=== PATIENT | female | born 1960 | race Caucasian/White ===

== ENCOUNTER 2016-12-17 11:56 | Day surgery (SDC) | payer BC ==
[~2016-12-17] VITALS: Ht 172.7 cm; Wt 104.3 kg
[~2016-12-17 11:56] MED LIST: AMOXICILLIN500 MG PO; CYCLOBENZAPRINE10 MG PO; DIFLUCAN150 MG PO; ESTRACE0.5 MG PO; GLUCOPHAGE500 MG PO; LEVOXYL50 MCG PO; LOTEMAX5 ML OPTH; METOPROLOL SUC100 MG PO; NORVASC5 MG PO; ONDANSETRON HCL8 MG PO; PROAIR RESPICL90 MCG; VALSARTAN-HCTZ1 EAC3 PO; XIIDRA1 EACH OP; ZITHROMAX250 MG PO
--- NOTE | 2016-12-17 14:18 | NUR ---
[facility]17[facility]16 [facility]18 [facility] PT WAS INFORMED THIS IS DUE TO THE PROCEDURE AND TO CONTINUE TO TRY AND PASS THE AIR. SHE STATES SHE WILL CONTINUE TO PASS THE AIR.
--- NOTE | 2016-12-18 15:15 | OR ---
[facility] [address] [place], [place] [address] Signed DATE OF PROCEDURE: 12/17/16 PREOPERATIVE DIAGNOSES Colon screening. Episodes of dysphagia without associated reflux. POSTOPERATIVE DIAGNOSES Poor flap valve consistent with small hiatal hernia. Significant antral gastritis. Polyp at 40 cm (excised). Sigmoid diverticulosis. PROCEDURE Esophagogastroduodenoscopy with biopsy. Total colonoscopy to cecum with hot snare polypectomy x1. SURGEON: Lourdes Mcgrath MD. ANESTHESIA: Intravenous sedation Fentanyl 150 mcg and Versed 6 mg. 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 The patient has concerns about reflux and occasional dysphagia as well as family history of colon cancer. She is also noted to have a small mass cephalad to the umbilicus consistent with epigastric hernia. An ultrasound confirmed a 2 cm defect with properitoneal fat herniated through it. She is admitted at this time to undergo upper endoscopy on the basis of her reflux and dyspeptic symptoms as well as colonoscopy for screening based on her age. The risks of bleeding, infection, and perforation related to either procedure was reviewed in detail. She understands and wished to proceed. FINDINGS On upper endoscopy, she had no obvious esophagi tis but did have a poor flap valve and small hiatal hernia. More notable was significant antral gastritis. CLOtest was negative indicative of no evidence of H. pylori. The duodenal had inflammation as well. There was no bay ulceration. On colonoscopy, the prep was quite good. Complete colonoscopy was undertaken to the cecum. Numerous diverticula were seen in the sigmoid. There was a small sessile polyp of the left colon at approximately 40 cm, which was excised with hot snare polypectomy technique. Electronically Signed By: LOURDES MCGRATH MD 12/18/16 1515 PATIENT NAME: HERMILA BENNETT OPERATIVE REPORT DATE OF : 56 PHYSICIAN: LOURDES MCGRATH MD REPORT #: [id number] REPORT IS CONFIDENTIAL AND NOT TO BE RELEASED WITHOUT AUTHORIZATION [facility] [address] [place], [place] [address] Signed DESCRIPTION OF PROCEDURE The patient was brought to the endoscopy suite and placed in lateral decubitus position after undergoing topical Hurricaine spray hypopharyngeal anesthesia. She was given intravenous sedation to the point of slurred speech and nystagmus. An Olympus video upper endoscope was passed in the hypopharynx. A bite block was used. The hypopharyngeal tissues were normal. Scope was advanced to the esophagus without problem. Throughout its length, it looked charito sonably normal. There is no evidence of Benz's epithelium, stricture, neoplasm, or varices. The scope was advanced to the stomach which was insufflated with air. Quite notable was markedly antral inflammation and minimal erosive changes. No sign of ulcer, however. The pylorus was normal and nondeformed. The endoscope was passed through the pylorus into the duodenal. The duodenal had edematous changes, but no ulceration. Biopsies were taken of the duodenum. Scope was withdrawn and a biopsy was then taken of the antrum for both [place] and pathologic testing. Retroflex view was undertaken showing a poor flap valve consistent with small hiatal hernia and a generally dysfunctional flap valve. The scope was straightened and withdrawn to the distal esophagus where biopsies were obtained and an additional biopsy was obtained in the mid esophagus. Careful withdrawal of scope showed no other abnormality. The table was rotated and additional sedation given. Digital rectal examination was normal showing normal sphincter tone. No evidence of recurrent cystocele and rectocele. An Olympus video colonoscope was passed in the rectum and manipulated throughout the colon. Sigmoid diverticulosis was noted. At approximately 40 cm a sessile polyp was noted. This was excised with h ot snare polypectomy technique completely. The scope was advanced further noting diverticula, but ultimately passed to the cecum showing no other abnormality. Irrigation was undertaken as needed. The scope was withdrawn from the cecum after identification of the ileocecal valve and appendiceal orifice. There was no evidence of abnormality upon withdrawal of the scope. The area of polypectomy was affirmed to be at 40 cm from the anal verge. Further withdrawal of scope confirmed diverticular changes of the sigmoid. Retroflexed view of the rectum was normal. Scope was removed and the patient was taken recovery room in good condition. CONCLUDING DIAGNOSES Clinical reflux symptoms with quite obvious antral gastritis. We will recommend Prilosec 20 mg daily. She may opt for Carafate 1 g p.o. q.i.d. on empty stomach. We will review this with her. Diverticular changes of the sigmoid and polyp. We would recommend high-fiber diet or a fiber supplement and consideration of repeat colonoscopy in 3 years. She will return to see us in approximately for 6 weeks and a plan for hernia repair will be anticipated as well. Electronically Signed By: LOURDES MCGRATH MD 12/18/16 3115 PATIENT NAME: HERMILA BENNETT OPERATIVE REPORT DATE OF : 56 PHYSICIAN: LOURDES MCGRATH MD REPORT #: [id number] REPORT IS CONFIDENTIAL AND NOT TO BE RELEASED WITHOUT AUTHORIZATION [facility] [address] [place] [address] [place], [place] [address] Signed MD ANGELIA Jama/Silvestre /[id number] cc: Kodak Baker PA-C Electronically Signed By: LOURDES MCGRATH MD 12/18/16 1515 PATIENT NAME: HERMILA BENNETT OPERATIVE REPORT DATE OF : 56 PHYSICIAN: LOURDES MCGRATH MD REPORT #: [id number] REPORT IS CONFIDENTIAL AND NOT TO BE RELEASED WITHOUT AUTHORIZATION
== END 2016-12-17 14:58 | disposition home or self-care (01) ==
LOC: DS 11:56 → OPS 11:56 → DS 13:00 → OPS 14:58
PROVIDERS: Surgery
PROC: 0DB28ZX Excision of Middle Esophagus, Via Natural or Artificial Opening Endoscopic, Diagnostic (ICD-10-PCS; 2016-12-17)
PROC: 0DB38ZX Excision of Lower Esophagus, Via Natural or Artificial Opening Endoscopic, Diagnostic (ICD-10-PCS; 2016-12-17)
PROC: 0DB68ZX Excision of Stomach, Via Natural or Artificial Opening Endoscopic, Diagnostic (ICD-10-PCS; 2016-12-17)
PROC: 0DBE8ZX Excision of Large Intestine, Via Natural or Artificial Opening Endoscopic, Diagnostic (ICD-10-PCS; principal; 2016-12-17 13:00)
PROC: 0DB98ZX Excision of Duodenum, Via Natural or Artificial Opening Endoscopic, Diagnostic (ICD-10-PCS; 2016-12-17 13:00)
DX: Z12.11 Encounter for screening for malignant neoplasm of colon (principal); D12.6 Benign neoplasm of colon, unspecified; K57.30 Diverticulosis of large intestine without perforation or abscess without bleeding; K29.50 Unspecified chronic gastritis without bleeding; K29.80 Duodenitis without bleeding; K44.9 Diaphragmatic hernia without obstruction or gangrene; Z80.0 Family history of malignant neoplasm of digestive organs; Z88.1 Allergy status to other antibiotic agents; Z88.8 Allergy status to other drugs, medicaments and biological substances; Z79.899 Other long term (current) drug therapy
CPT/HCPCS: 99152; 99153; J2250; J3010; J7120

== ENCOUNTER 2020-07-14 07:12 | Day surgery (SDC) | payer BC ==
[~2020-07-14] VITALS: Ht 172.7 cm; Wt 104.0 kg
[~2020-07-14 07:12] MED LIST changes: +ALDACTONE25 MG PO; +VALSARTAN-HCTZ1 EAC2 PO; -VALSARTAN-HCTZ1 EAC3 PO
[2020-07-14] MEDS ORDERED: VITAMIN D21250 MCG PO (07:52)
[2020-07-14] MEDS ORDERED: VITAMIN C1000 MG PO (07:53)
[2020-07-14] MEDS ORDERED: FISH OIL 1,001000 MG PO (07:53)
[2020-07-14] MEDS ORDERED: ZINC50 M1 PO (07:53)
--- NOTE | 2020-07-14 10:53 | NUR ---
07/14/20 1053 Lyn Liao 1035 PT TO PACU SLEEPING O2 VIA MASK FOGGING WITH RESPIRATIONS.
[2020-07-14] MEDS ORDERED: TYLENOL EXTRA500 MG PO (11:03)
[2020-07-14] MEDS ORDERED: MOTRIN IB200 MG PO (11:03)
[2020-07-14] MEDS ORDERED: PERCOCET 7.5-31 EACH PO (11:04)
--- NOTE | 2020-07-14 11:28 | NUR ---
LE 1115: PT RETURNS TO UNIT FROM PACU VIA STRETCHER. BEDSIDE REPORT RECEIVED AND CARE ASSUMED BY THIS AUTHOR. PT ALERT AND ORIENTED. VSS, DRESSING C/D/I. PT DENIES NAUSEA AND ICE WATER PROVIDED. PT WITHOUT NEEDS. CALL LIGHT WITHIN REACH
--- NOTE | 2020-07-14 12:38 | NUR ---
LE 1215: PT CONTS TO BE ALERT AND ORIENTED. VSS, DRESSING C/D/I. IV CONVERTED TO SL. PT DANGLES AT THE BEDSIDE, DENIES DIZZINESS AND SOB. AMBULATES TO BR WITH STANDBY ASSIST FROM THIS RN. SUCCESSFUL POST OP VOID. BACK TO ROOM AND PREPARES FOR D/C ONCE ARROVES. NO NEEDS VOICED. CALL LIGHT WITHIN REACH
--- NOTE | 2020-07-14 13:29 | NUR ---
PT ALERT, ORIENTED AND SUPPORTED BY HER LAN-HE WILL REMAIN HERE. PT IS PLEASANT, BOTH WAITING FOR RN TO COME AND GET THEM STATRTED TODAY. HAD. MOMENT WITH BOTH. GAVE ENCOURAGEMENT, WILL FOLLOW
--- NOTE | 2020-07-14 13:33 | NUR ---
PT CONTS TO WAIT FOR 'S ARRIVAL. VSS, RX ADMINISTERED FOR PAIN ORDERED. DRESSING C/D/I. LIA PO INTAKE WELL. SL D/C'D WITH CATH TIP INTACT AND PRESSURE APPLIED TO SITE. NO NEEDS. CALL LIGHT WITHIN REACH
--- NOTE | 2020-07-14 14:35 | NUR ---
LE 1405: PT'S ARRIVES ON THE UNIT. D/C INSTRUCTIONS PROVIDED AND DISCUSSED. PT VOICES UNDERSTANDING. ENCD TO RETURN OR CALL WITH ANY CONCERNS. WHEELED OFF OF UNIT IN W/C. TRANSFERS INTO VEHICLE INDPENDENTLY. RESP EVEN AND UNLABORED. NO PHYSICAL S/S OF DISTRESS AT THIS TIME
--- NOTE | 2020-07-14 16:46 | EKG ---
[facility] [place] [facility] [address] [facility] [place] [address] Signed Normal sinus rhythm Normal ECG No previous ECGs available Confirmed by BRUNO SALMERON MD ([id number]) on 07/14/2020 4:46:33 PM Electronically Signed By: BRUNO SALMERON MD 07/14/20 1646 PATIENT NAME: HERMILA BENNETT Electrocardiogram DATE OF : 56 PHYSICIAN: BRUNO SALMERON MD REPORT #: [id number] REPORT IS CONFIDENTIAL AND NOT TO BE RELEASED WITHOUT AUTHORIZATION
--- NOTE | 2020-07-16 13:48 | OR ---
[facility] [address] [place], [place] [address] Signed DATE OF OPERATION: 07/14/2020 SURGEON: Lourdes Mcgrath MD PREOPERATIVE DIAGNOSES: 1. Painful ventral epigastric hernia. 2. BMI 35. POSTOPERATIVE DIAGNOSES: 1. Painful ventral epigastric hernia. 2. BMI 35. 3. Herniated omentum. PROCEDURES: 1. Repair of epigastric ventral hernia. 2. Implantation of Prolene mesh, properitoneal space. 3. Partial omentectomy. ANESTHESIA: General endotracheal, Jacobo Victoria, BLOCK CUBER and local 10 mL of 0.25% Marcaine with epinephrine. 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 She is a patient of Jyothi Washburn PA-C in [place], [place]. The patient has had increasing pain in the epigastric supraumbilical area found clinically to have a hernia there. Plans were made for repair of the hernia in the past; however due to insurance issues, it never could be undertaken. I last saw her in January of 2017. Her hernia has worsened in size and in symptoms and she is now admitted to undergo repair of the hernia. It appears clinically nonreducible. She has no nausea or vomiting to suggest incarcerated hollow viscus. She is admitted at this time to undergo repair of the hernia. She understands the risks of bleeding, infection, recurrence and so on. FINDINGS: Indeed herniated omentum was noted within the hernia sac. This was well cephalad from the umbilicus itself. A transverse fascial defect was noted. Operative repair consisted of resection of portion of the omentum, closure of the hernia sac and implantation of Prolene mesh in the properitoneal space with reapproximation of the fascia transversely using Prolene suture and Prolene pledgets. There were no complications. She did not require a drain. Electronically Signed By: LOURDES MCGRATH MD 07/16/20 9388 PATIENT NAME: THEODORA SINCLAIR OPERATIVE REPORT DATE OF : 56 REPORT #: [id number] PHYSICIAN: LOURDES MCGRATH MD PCP: JYOTHI WASHBURN REPORT IS CONFIDENTIAL AND NOT TO BE RELEASED WITHOUT AUTHORIZATION [facility] [address] [place], [place] [address] Signed DESCRIPTION OF PROCEDURE: The patient was brought to the operating room, given a general endotracheal anesthetic. Preoperative antibiotic Ancef was given. Sequential compression device stockings were used. Heparin was subcutaneously administered. The abdomen was prepared with a chlorhexidine solution and draped sterilely. Approximately 5 fingerbreadths from the umbilicus, an incision was made directly over the soft tissue mass, which was nonreducible. Dissection was carried through the subcutaneous tissue and bluntly what appeared to be herniated fat. A fascial defect approximately 5 cm was noted with a transverse separation of the fibers typical of epigastric ventral hernia. The fascial edges were freed circumferentially. Ultimately, the hernia sac was opened and found to have omentum within it. Intraabdominal inspection showed no sign of ascites or carcinomatosis. The bulky portion of omentum was resected and replaced to the abdominal cavity and the hernia sac edges were reapproximated with running 2-0 Vicryl suture. The properitoneal space was developed bluntly throughout extending approximately 5-6 cm. A segment of Prolene mesh was cut to an elliptical configuration and secured transversely using 0 prolene sutures with Prolene pledgets. Care was taken to distribute the mesh to cover the defect fully and with overlap of at least 4 cm. The fascial edges were then reapproximated transversely with interrupted 0 Prolene with Prolene pledgets. A 10 mL of 0.25% Marcaine was injected locally. Subcutaneous tissue was reapproximated with interrupted 2-0 Vicryl and skin closed with a running subcuticular 3-0 Vicryl. Steri-Strips were applied as was an Acticoat dressing. The patient was allowed to emerge from anesthesia, extubated, and taken to the recovery room in good condition. BLOOD LOSS: Minimal. COMPLICATIONS: None. Lourdes Mcgrath MD JM/MODL /[id number] Electronically Signed By: LOURDES MCGRATH MD 07/16/20 1348 PATIENT NAME: THEODORA SINCLAIR OPERATIVE REPORT DATE OF : 56 REPORT #: [id number] PHYSICIAN: LOURDES MCGRATH MD PCP: JYOTHI WASHBURN REPORT IS CONFIDENTIAL AND NOT TO BE RELEASED WITHOUT AUTHORIZATION [address] [address] Signed cc: KAL Remy PA Copies: Theodora Sinclair MATTHEW PA ~ Electronically Signed By: LOURDES MCGRATH MD 07/16/20 1348 PATIENT NAME: THEODORA SINCLAIR OPERATIVE REPORT DATE OF : 56 REPORT #: [id number] PHYSICIAN: LOURDES MCGRATH MD PCP: JYOTHI WASHBURN REPORT IS CONFIDENTIAL AND NOT TO BE RELEASED WITHOUT AUTHORIZATION
== END 2020-07-14 14:05 | disposition home or self-care (01) ==
LOC: DS 07:12
PROVIDERS: ATTEND Surgery
PROC: 0WUF0JZ Supplement Abdominal Wall with Synthetic Substitute, Open Approach (ICD-10-PCS; principal; 2020-07-14 08:45)
DX: K43.9 Ventral hernia without obstruction or gangrene (principal); N81.6 Rectocele; E03.9 Hypothyroidism, unspecified; I10 Essential (primary) hypertension; J45.909 Unspecified asthma, uncomplicated; N28.9 Disorder of kidney and ureter, unspecified; G47.30 Sleep apnea, unspecified; Z86.010 Personal history of colon polyps; Z90.711 Acquired absence of uterus with remaining cervical stump; Z88.1 Allergy status to other antibiotic agents; Z88.3 Allergy status to other anti-infective agents; Z91.040 Latex allergy status
CPT/HCPCS: 93005; 93010; A9270; C1781; J0131; J0330; J0690; J1100; J1644; J1885; J2001; J2405; J2704; J2765; J3010; J7121

== ENCOUNTER 2020-08-26 06:34 | Day surgery (SDC) | payer BC ==
[~2020-08-26] VITALS: Ht 172.7 cm; Wt 104.5 kg
[~2020-08-26 06:34] MED LIST changes: +FISH OIL 1,001000 MG PO; +LOSARTAN POTAS100 MG PO; +LOTEMAX5 GM; +MOTRIN IB200 MG PO; +OMEPRAZOLE20 MG PO; +ONDANSETRON ODT8 MG PO; +OZEMPIC0.25 MG/0. SUB-Q; +PERCOCET 7.5-31 EACH PO; +TYLENOL EXTRA500 MG PO; +VITAMIN C1000 MG PO; +VITAMIN D21250 MCG PO; +ZINC50 M1 PO
--- NOTE | 2020-08-26 08:39 | NUR ---
08/26/20 0839 Aneta West 5983 PT ARRIVED TO PACU ON 3L VIA NC, PT WAKES EASILY AND DENIES PAIN AND NAUSEA. PT REORIENTED TO PACU. VSS. PT FALLS BACK TO SLEEP.
--- NOTE | 2020-08-27 10:51 | OR ---
[facility] [address] [place], [place] [address] Signed DATE OF OPERATION: 08/26/2020 SURGEON: Lourdes Mcgrath MD PREOPERATIVE DIAGNOSIS: History of tubular adenoma at 40 cm (2017). POSTOPERATIVE DIAGNOSES: 1. Small polyp at 20 cm (excised). 2. Sigmoid diverticulosis. PROCEDURE: Total colonoscopy to cecum with cold morcellation polypectomy x1. ANESTHESIA: Intravenous sedation; fentanyl 150 mcg and Versed 10 mg. INDICATION: This 59-year-old white woman is a patient of Jyothi Washburn PA-C in [place], [place]. She is known to me from the past having undergone colonoscopy in 2017, where a tubular adenoma was resected at 40 cm. She is symptom-free as regard to colon currently. She is admitted at this time to undergo colonoscopy for surveillance. She understands the risks of bleeding, infection, perforation, and so on, wished to proceed. FINDINGS: The prep was adequate. Complete colonoscopy was undertaken to the cecum without question. She had numerous diverticula of the sigmoid and left colon. There was a small polyp, probably adenomatous at approximately 20 cm, which was excised with cold morcellation technique. There were no other findings of concern. DESCRIPTION OF PROCEDURE: The patient was brought to the endoscopy suite and placed in lateral decubitus position, given intravenous sedation to the point of slurred speech and nystagmus. Digital rectal examination was normal. An Olympus video colonoscope was passed in the rectum and manipulated throughout the colon. Prep was adequate, but not outstanding. Irrigation was required a fair amount. Ultimately, the scope was passed beyond the sigmoid where numerous diverticula were identified and ultimately to the cecum itself. Abdominal wall stabilization was required to provide full intubation of the cecum. Irrigation was undertaken and the Electronically Signed By: LOURDES MCGRATH MD 08/27/20 1051 PATIENT NAME: DONALDHERMILA ABDUL OPERATIVE REPORT DATE OF : 56 REPORT #: [id number] PHYSICIAN: LOURDES MCGRATH MD PCP: KATERINA THOMPSON PAC REPORT IS CONFIDENTIAL AND NOT TO BE RELEASED WITHOUT AUTHORIZATION [facility] [address] [place], [place] [address] Signed scope was carefully withdrawn, examination undertaken. There was no abnormality of the diverticular changes of the left colon and sigmoid until approximately 20 cm where a small adenomatous-appearing polyp was noted. This was excised with cold morcellation technique completely. Further withdrawal of scope allowed for retroflexed view of the rectum, which was normal. Scope was removed and the patient was taken to the recovery room in good condition. CONCLUDING DIAGNOSES: 1. Diverticulosis. 2. Polyp at 20 cm. PLAN: Recommend high-fiber diet. Consider repeat colonoscopy in 3 years sooner if clinically indicated. She will return to the ongoing care of Jyothi Washburn PA-C in [place], [place]. MD ANGELIA Jama/MADISON /[id number] cc: MIN Demarco ARNP Copies: JYOTHI WASHBURN Vicki Lynne [facility] ~ Electronically Signed By: LOURDES MCGRATH MD 08/27/20 1051 PATIENT NAME: HERMILA BENNETT OPERATIVE REPORT DATE OF : 56 REPORT #: [id number] PHYSICIAN: LOURDES MCGRATH MD PCP: KATERINA THOMPSON PAC REPORT IS CONFIDENTIAL AND NOT TO BE RELEASED WITHOUT AUTHORIZATION
== END 2020-08-26 09:10 | disposition home or self-care (01) ==
LOC: OPS 06:34 → DS 06:34 → OPS 06:45
PROVIDERS: ATTEND Surgery
PROC: 0DBH8ZX Excision of Cecum, Via Natural or Artificial Opening Endoscopic, Diagnostic (ICD-10-PCS; principal; 2020-08-26 06:45)
DX: K57.30 Diverticulosis of large intestine without perforation or abscess without bleeding (principal); K63.5 Polyp of colon; I10 Essential (primary) hypertension; E03.9 Hypothyroidism, unspecified; K43.9 Ventral hernia without obstruction or gangrene; Z90.711 Acquired absence of uterus with remaining cervical stump
CPT/HCPCS: 99153; G0500; J2250; J3010; J7121